=== PATIENT | male | born 1980 | race Caucasian/White ===

== ENCOUNTER 2023-11-15 20:19 | Emergency (ER) | payer OTHER ==
[~2023-11-15] VITALS: Ht 185.4 cm; Wt 109.1 kg
[2023-11-15] MEDS ORDERED: Ketorolac 30 MG/ML VIAL IM ONE (22:00)
[2023-11-15] MEDS ORDERED: HYDROcodone/Acetaminophen 7.5-325 MG TAB PO ONE (22:45)
[2023-11-15] MEDS ORDERED: NARCAN4 MG NS (22:52)
[2023-11-15] MEDS ORDERED: NORCO 325 MG-51 TAB PO (22:52)
[2023-11-15 23:20] VITALS: BP 158/105; PULSE 82; TEMP 97.6
== END 2023-11-15 23:16 | disposition home or self-care (01) ==
LOC: COL.ER 20:19
DX: S82.831A Other fracture of upper and lower end of right fibula, initial encounter for closed fracture (principal); X50.1XXA Overexertion from prolonged static or awkward postures, initial encounter; Y93.01 Activity, walking, marching and hiking
CPT/HCPCS: J1885